=== PATIENT | female | born 1995 | race Caucasian/White ===

== ENCOUNTER 2017-10-17 04:09 | Emergency (ER) | payer OTHER ==
[2017-10-17 04:15] VITALS: BP 137/94; PULSE 72; RESP 18; TEMP 97.5
--- NOTE | 2017-10-17 04:22 | ED ---
ENT HPI - General Chief complaint: ENT Stated complaint: Earache Time Seen by Provider: 10/17/17 04:18 Source: patient, RN notes reviewed, old records reviewed Mode of arrival: ambulatory Limitations: no limitations - History of Present Illness Initial comments: This is a 22-year-old female the ER for evasive severe pain significant right ear pain. Patient states she's recently diagnosed with otitis externa started on drops of her right ear 5 days no improvement. Patient denies fevers. Patient severe severe right ear pain. Patient denies any change in her hearing no headache no known travel history no known sick contacts MD complaint: ear pain Location: R ear Severity: severe Severity scale (1-10): 9 Quality: burning, aching Consistency: constant Improves with: none Worsens with: none - Related Data Previous Rx's Medication Instructions Recorded Ibuprofen [Motrin] 200 - 400 mg PO Q6HR 7 Days tab 01/31/16 Ciprofloxacin HCl [Cipro] 500 mg PO Q12HR #14 tablet 10/17/17 Allergies Allergy/AdvReac Type Severity Reaction Status Date / Time No Known Allergies Allergy Verified 01/31/16 15:11 Review of Systems ROS Statement: Those systems with pertinent positive or pertinent negative responses have been documented in the HPI. ROS Other: All systems not noted in ROS Statement are negative. Past Medical History Past Medical History: No Reported History History of Any Multi-Drug Resistant Organisms: None Reported Past Surgical History: No Surgical Hx Reported Past Psychological History: No Psychological Hx Reported Smoking Status: Current every day smoker Past Alcohol Use History: Occasional Past Drug Use History: None Reported General Exam Limitations: no limitations Course Vital Signs 10/17/17 04:11 Temperature 97.5 F L Pulse Rate 72 Respiratory 18 Rate Blood Pressure 137/94 O2 Sat by Pulse 100 Oximetry Medical Decision Making - Medical Decision Making 22 female the ER with right ear pain, significant right otitis externa, will add oral antibiotics and switch drops from Polytrim to Cipro and patient will follow-up with ophthalmology Disposition Clinical Impression: Otitis media Disposition: HOME SELF-CARE Condition: Good Instructions: Earache (ED), Serous Otitis Media (ED) Prescriptions: Ciprofloxacin HCl [Cipro] 500 mg PO Q12HR #14 tablet Is patient prescribed a controlled substance at d/c from ED?: No Referrals: Aguilar Garcia MD [STAFF PHYSICIAN] - 1-2 days
[2017-10-17] MEDS ORDERED: CIPROFLOXACIN-DEXAMETH 0.3-0.1% DROPS 7.5 ML BTL RIGHT EAR STA (04:27)
[2017-10-17] MEDS ORDERED: CIPROFLOXACIN HCL 500 MG TAB PO STA (04:27)
[2017-10-17] MEDS ORDERED: HYDROcodone/APAP 5-325MG 1 EACH TAB PO STA (04:27)
[2017-10-17] MEDS ORDERED: ACET/COD 300 MG/30 MG STARTER PACK 6 TAB BTL PO STA (04:28)
== END 2017-10-17 04:51 | disposition home or self-care (01) ==
LOC: EC 04:09
DX: H66.91 Otitis media, unspecified, right ear (principal); H60.91 Unspecified otitis externa, right ear; F17.200 Nicotine dependence, unspecified, uncomplicated
CPT/HCPCS: 99283

== ENCOUNTER 2020-04-23 11:33 | Emergency (ER) | payer OTHER ==
[2020-04-23] MEDS ORDERED: KETOROLAC 15 MG/ML 1 ML VIAL IM STA (12:16)
[2020-04-23] MEDS ORDERED: predniSONE 50 MG TAB PO STA (12:43)
--- NOTE | 2020-04-23 12:45 | ED ---
Lower Extremity Injury HPI - General Chief Complaint: Extremity Injury, Lower Stated Complaint: lt foot swelling Time Seen by Provider: 04/23/20 12:02 Source: patient Mode of arrival: wheelchair Limitations: no limitations - History of Present Illness Initial Comments: 25-year-old female patient presents to the emergency department today for evaluation of left foot pain and swelling. Patient states that she gets similar symptoms periodically in her symptoms are exactly the same. States she is generally able to control her symptoms with ibuprofen but this time was working. States symptoms started yesterday and have worsened today. Denies any fever or chills. Denies any known injury to the foot. States it is very tender and difficult to stand on her foot. Denies history of gout. States that she's never had it evaluated by her primary care physician. Patient denies any headache, neck pain, back pain, chest pain, shortness of breath, dizziness, weakness, abdominal pain, nausea, vomiting, or difficulties with bowel movements or urination. - Related Data Previous Rx's Medication Instructions Recorded Ibuprofen [Motrin] 200 - 400 mg PO Q6HR 7 Days tab 01/31/16 Ciprofloxacin HCl [Cipro] 500 mg PO Q12HR #14 tablet 10/17/17 predniSONE 50 mg PO DAILY #5 tablet 04/23/20 Allergies Allergy/AdvReac Type Severity Reaction Status Date / Time No Known Allergies Allergy Verified 04/23/20 11:40 Review of Systems ROS Statement: Those systems with pertinent positive or pertinent negative responses have been documented in the HPI. ROS Other: All systems not noted in ROS Statement are negative. Past Medical History Past Medical History: No Reported History History of Any Multi-Drug Resistant Organisms: None Reported Past Surgical History: No Surgical Hx Reported Past Psychological History: No Psychological Hx Reported Smoking Status: Current every day smoker Past Alcohol Use History: Occasional Past Drug Use History: Marijuana General Exam Limitations: no limitations General appearance: alert, in no apparent distress, other (Physical well- developed, well-nourished adult female patient in no acute distress. Vital signs upon presentation are temperature 98.6F, pulse 98, respirations 20, blood pressure 137/90, pulse ox 99% on room air.) Respiratory exam: Present: normal lung sounds bilaterally. Absent: respiratory distress, wheezes, rales, rhonchi, stridor Cardiovascular Exam: Present: regular rate, normal rhythm, normal heart sounds. Absent: systolic murmur, diastolic murmur, rubs, gallop, clicks GI/Abdominal exam: Present: soft, normal bowel sounds. Absent: distended, tenderness, guarding, rebound, rigid Extremities exam: Present: full ROM, tenderness (Generalized foot tenderness), normal capillary refill, other (There is generalized swelling noted to the left foot and toes. Skin is pink, warm, dry. Cap refill less than 3 seconds. Pedal and posttibial pulses are 2+. No focal erythema. No calf or lower leg tenderness or pain.). Absent: normal inspection, pedal edema, joint swelling, calf tenderness Neurological exam: Present: alert, oriented X3, CN II-XII intact Psychiatric exam: Present: normal affect Skin exam: Present: warm, dry, intact, normal color. Absent: rash Course Vital Signs 04/23/20 04/23/20 11:38 13:04 Temperature 98.6 F 97.1 F L Pulse Rate 98 90 Respiratory 20 18 Rate Blood Pressure 137/90 128/87 O2 Sat by Pulse 99 99 Oximetry Medical Decision Making - Medical Decision Making 25-year-old female patient presented to the emergency department today for evaluation of left foot pain and swelling. Physical examination did reveal generalized swelling to the left foot and toes. Good neurovascular status. Patient has had symptoms similar to this before and declined x-ray. We did discuss possibility of inflammatory arthritis as a cause for her symptoms as she has had this in different joints. I did offer to perform laboratory testing, patient states she does not have time today. She'll be discharged with follow- up instructions. She is instructed to see a cash manager and establish with a primary care physician. Given a prescription for steroids. Return parameters were discussed in detail. She verbalizes understanding and agrees with this plan. Case discussed with my attending Dr. Verdugo. Disposition Clinical Impression: Left foot pain, Swelling of left foot Disposition: HOME SELF-CARE Condition: Good Instructions (If sedation given, give patient instructions): Arthralgia (ED), Swollen Joint (ED), Arthritis (ED) Additional Instructions: Take medications as directed. Continue ibuprofen. Take all medications with meals. Consider using [id number] Pepcid to protect her stomach. Follow- up with the cash manager and her primary care physician for recheck as soon as possible. When making your appointment inform them that there is concern for inflammatory arthritis. Return to the emergency department for any new, worsening, or concerning symptoms. Prescriptions: predniSONE 50 mg PO DAILY #5 tablet Is patient prescribed a controlled substance at d/c from ED?: No Referrals: Apoorva Robledo MD [STAFF PHYSICIAN] - 1-2 days Time of Disposition: 12:45
[2020-04-23 13:10] VITALS: BP 128/87; PULSE 90; RESP 18; TEMP 97.1
== END 2020-04-23 13:04 | disposition home or self-care (01) ==
LOC: EC 11:33
DX: M79.672 Pain in left foot (principal); M79.89 Other specified soft tissue disorders; F17.200 Nicotine dependence, unspecified, uncomplicated
CPT/HCPCS: 96372; 99283; J1885; J7512

== ENCOUNTER 2021-04-09 19:20 | Emergency (ER) | payer OTHER ==
[2021-04-09 19:29] VITALS: TEMP 98.7
[2021-04-09] MEDS ORDERED: HYDROcodone/APAP 5-325MG 1 EACH TAB PO STA (19:38)
[2021-04-09] MEDS ORDERED: KETOROLAC 15 MG/ML 1 ML VIAL IM STA (19:43)
--- NOTE | 2021-04-09 19:50 | ED ---
Upper Extremity HPI - General Chief Complaint: Extremity Injury, Upper Stated Complaint: hand injury Time Seen by Provider: 04/09/21 19:31 Source: patient, RN notes reviewed Mode of arrival: ambulatory Limitations: no limitations - History of Present Illness Initial Comments: This is an unpleasant 26 year old [facility] and philtrum. Patient uncooperative and unwilling to discuss much of her story initially. Her mother states that when she drove up the driveway the patient was laying on the porch, appearing as if she had slipped. The patient told her mother that she had walked into a door. Upon questioning the patient after pain medication was administered, she was more pleasant and explained that she shut her left hand in the door. She also sustained a laceration above her lip on the philtrum. MD Complaint: Injury to:: left, hand Other Extremity Injury: Fingers: Left, Hand: Left Place: home - Related Data Previous Rx's Medication Instructions Recorded Ibuprofen [Motrin] 200 - 400 mg PO Q6HR 7 Days tab 01/31/16 Ciprofloxacin HCl [Cipro] 500 mg PO Q12HR #14 tablet 10/17/17 predniSONE 50 mg PO DAILY #5 tablet 04/23/20 Ibuprofen [Motrin] 800 mg PO Q8H #30 tab 04/09/21 Allergies Allergy/AdvReac Type Severity Reaction Status Date / Time No Known Allergies Allergy Verified 04/09/21 19:29 Review of Systems ROS Statement: Those systems with pertinent positive or pertinent negative responses have been documented in the HPI. ROS Other: All systems not noted in ROS Statement are negative. Constitutional: Denies: fever, chills Respiratory: Denies: cough, dyspnea Cardiovascular: Denies: chest pain, palpitations Gastrointestinal: Denies: abdominal pain, nausea, vomiting, diarrhea Genitourinary: Denies: urgency, dysuria Skin: Reports: other (Laceration of the philtrum. Subungual hematoma of the left third finger) Past Medical History Past Medical History: No Reported History History of Any Multi-Drug Resistant Organisms: None Reported Past Surgical History: No Surgical Hx Reported Past Psychological History: No Psychological Hx Reported Smoking Status: Current every day smoker Past Alcohol Use History: Occasional Past Drug Use History: Marijuana General Exam Limitations: no limitations General appearance: alert, in distress Head exam: Present: atraumatic, normocephalic, normal inspection Respiratory exam: Present: normal lung sounds bilaterally. Absent: respiratory distress, wheezes, rales, rhonchi, stridor Cardiovascular Exam: Present: regular rate, normal rhythm, normal heart sounds. Absent: systolic murmur, diastolic murmur, rubs, gallop, clicks Neurological exam: Present: alert, oriented X3, CN II-XII intact Skin exam: Present: other (Subungual hematoma of the left third finger with swelling and echymosis of the middle and proximal phalanges of the left third finger.) Expanded Type of lesion: Present: laceration (1cm superficial laceration of the philtrum) Course Vital Signs 04/09/21 04/09/21 19:27 23:09 Temperature 98.7 F Pulse Rate 140 H 90 Respiratory 22 20 Rate Blood Pressure 152/125 132/85 O2 Sat by Pulse 96 96 Oximetry Procedures - Procedures Initial comment: Subungual hematoma was drained from the left third finger. A digital block was performed using 2 mL of 1% lidocaine. Zach holes were made using an 11 blade scalpel and sanguinous fluid was expressed. - Nerve Block Consent Obtained: verbal consent Local Anesthetic Used: Lidocaine 1% Amount of anesthesia used: 2 Side: left Nerve Blocks: digital Procedure Successful: Yes Complications: none Patient Tolerated Procedure: well Medical Decision Making - Medical Decision Making This is a 26 year old female who presents to the emergency department for an injury to the left hand and laceration to the philtrum. Patient was initially very unpleasant, uncooperative, and aggressive. She was given Toradol and norco for pain relief, which helped initially. About an hour later, she became distraught and would not settle down, and she was thus treated with IM ativan which had good effect. XR of the hand ruled out any fractures. Laceration was very superficial and no repair is required. Subungual hematoma of the left third finger was drained and offered immediate relief to the patient. Patient advised that this may continue to drain over the next 24-48 hours and is not of con cern. Motrin and Tylenol recommended for pain relief. Patient requested an rx for motrin be sent to her pharmacy, and this was sent over as requested. Return precautions reviewed in depth, the patient is instructed to return to the emergency department if symptoms worsen or do not improve. Patient verbalized understanding. This case was discussed in detail with the attending ED physician. Presentation, findings, and treatment plan discussed in detail as well. - Radiology Data Radiology results: report reviewed, image reviewed Disposition Clinical Impression: Hematoma, subungual, finger, left Disposition: HOME SELF-CARE Instructions (If sedation given, give patient instructions): Subungual Hematoma (ED) Additional Instructions: Return to the emergency department if you develop fevers/chills, increased swelling of the finger, or if there is drainage of pus. Be aware that drainage may occur for the next 24-48 hours. Prescriptions: Ibuprofen [Motrin] 800 mg PO Q8H #30 tab Is patient prescribed a controlled substance at d/c from ED?: No Referrals: None,Stated [Primary Care Provider] - 1-2 days
--- NOTE | 2021-04-09 20:11 | XR ---
EXAMINATION TYPE: XR hand complete LT DATE OF EXAM: 04/09/2021 COMPARISON: NONE HISTORY: Pain TECHNIQUE: 3 views FINDINGS: Metacarpals are intact. I see no fracture nor dislocation. Joint spaces are normal. The fin gers appear intact. Middle finger is intact. IMPRESSION: Negative left hand exam.
[2021-04-09] MEDS ORDERED: LIDOCAINE 1% INJ 10MG/ML (20 ML MDV) SQ ONE (21:02)
[2021-04-09] MEDS ORDERED: LORazepam 2 MG/ML INJ IM STA (21:45)
[2021-04-09 23:13] VITALS: BP 132/85; PULSE 90; RESP 20
== END 2021-04-09 23:01 | disposition home or self-care (01) ==
LOC: EC 19:20
DX: S60.132A Contusion of left middle finger with damage to nail, initial encounter (principal); F17.200 Nicotine dependence, unspecified, uncomplicated; X58.XXXA Exposure to other specified factors, initial encounter
CPT/HCPCS: 99283; 96372; 73130; 11740; J2060; J2001; J1885

== ENCOUNTER 2021-11-26 21:36 | Emergency (ER) | payer OTHER ==
[2021-11-26] MEDS ORDERED: ACETAMINOPHEN TAB 500 MG TAB PO STA (21:57)
[2021-11-26] MEDS ORDERED: SODIUM CHLORIDE 0.9% 2,000 ML IV STA (21:57)
[2021-11-26] MEDS ORDERED: ONDANSETRON 4 MG/2 ML VIAL IVP STA (21:57)
[2021-11-26 22:16] VITALS: BP 105/72; PULSE 93; RESP 19; TEMP 98
--- NOTE | 2021-11-26 22:16 | ED ---
General Adult HPI - General Stated complaint: Syncope Time Seen by Provider: 11/26/21 21:38 Source: patient, RN notes reviewed, old records reviewed - History of Present Illness Initial comments: Patient is a 26-year-old female who presents emergency Department following a syncopal episode. Patient states she was standing in her kitchen when she leaned up against the fridge and wall, and she appeared to have slid down the wall and was sitting on the ground. She believes she passed out. Denies hitting her head. Denies any prior history of syncopal episodes. States she has not been eating or drinking much the last few days due to feeling ill. Has generalized joint pain, headache, fatigue for 3 days. States she feels she has the flu and has been lying in bed during that time. Denies nausea or vomiting. Denies diarrhea. States immediately after the episode of syncope patient felt nauseous and felt she may need to use the restroom but did not. Denies any urinary complaints. Denies any chest pain or shortness of breath. Denies any cough. Denies nasal congestion or sore throat. No other acute complaints at this time. Was not vaccinated for Covid. Is uncertain if she is positive. Presents for further evaluation at this time. Denies urinary complaints. Does not believe she is . - Related Data Previous Rx's Medication Instructions Recorded Ibuprofen [Motrin] 200 - 400 mg PO Q6HR 7 Days tab 01/31/16 Ciprofloxacin HCl [Cipro] 500 mg PO Q12HR #14 tablet 10/17/17 predniSONE 50 mg PO DAILY #5 tablet 04/23/20 Ibuprofen [Motrin] 800 mg PO Q8H #30 tab 04/09/21 Allergies Allergy/AdvReac Type Severity Reaction Status Date / Time acetaminophen [From [facility]] AdvReac Nausea Verified 11/26/21 22:16 hydrocodone [From [facility]] AdvReac Nausea Verified 11/26/21 22:16 Review of Systems ROS Statement: Those systems with pertinent positive or pertinent negative responses have been documented in the HPI. Review of Systems: CONST: Endorses chills EYES: Denies blurry vision ENT: Denies nasal congestion C/V: Denies Chest pain RESP: Denies shortness of breath GI: Denies abdominal pain : Denies dysuria SKIN: Denies rash. MSK: Endorses generalized body aches NEURO: Endorses headache ROS Other: All systems not noted in ROS Statement are negative. Past Medical History Past Medical History: No Reported History History of Any Multi-Drug Resistant Organisms: None Reported Past Surgical History: No Surgical Hx Reported Past Psychological History: No Psychological Hx Reported Smoking Status: Current every day smoker Past Alcohol Use History: Occasional Past Drug Use History: Marijuana General Exam - General Exam Comments Initial Comments: General: Appears in no acute distress. HEAD: Normal with no signs of head trauma. EYES: PERRLA, EOMI, conjunctiva normal, no discharge. Pupils are 3 mm and equal bilaterally. ENT: Hearing grossly intact, normal oropharynx. Dry mucous membranes. RESPIRATORY: Clear breath sounds bilaterally. No wheezes, rales, or rhonchi. No hypoxia, no respiratory distress. C/V: Regular rate and rhythm. S1 and S2 auscultated, no edema, peripheral pulses 2+ and intact throughout ABD: Abd is soft, nontender, nondistended EXT: Normal range of motion, no obvious deformity SKIN: No rashes or lesions observed on exposed skin. NEURO: Alert and oriented x 4. Cranial nerves II-XII intact. No focal sensory or strength deficits. GCS of 15. Course Vital Signs 11/26/21 11/26/21 22:10 22:14 Temperature 98 F Pulse Rate 74 93 Respiratory 15 19 Rate Blood Pressure 105/65 105/72 O2 Sat by Pulse 98 98 Oximetry Medical Decision Making - Medical Decision Making Based on patient's presentation and physical exam, I do believe she likely experienced a possible syncopal episode at home. Appears likely associated with her illness type symptoms that she is having and I strongly suspect COVID-19 at this time. Appears dehydrated. She'll be fluid hydrated, we will obtain syncopal labs as well as a screening EKG. COVID-19 for signs will be sent. Chest x-ray will be obtained. She was in agreement with this plan. Neuro exam is within normal limits at this time. Vital signs are within except for limits. No respiratory distress. EKG shows no signs of acute ischemia.Patient refuses chest x-ray. Patient refuses Covid and flu swabs. She does accept the laboratory studies and IV fluids. Laboratory studies remarkable for leukocytosis of 16 which is likely reactive due to multiple episodes of emesis, as well as her viral illness she is having. Does appear mildly dehydrated swollen glands. She is not . On reevaluation, she is feeling improved. Like to go home. Vital signs are still within acceptable limits. She is tolerating oral intake. We discussed that she likely has COVID-19 and she should do a home test. She was in agreement. She'll be given Zofran ODT starter pack. Strict return precautions were discussed. She is likely experiencing a viral syndrome. Discussed proper hydration. She was in agreement this plan. She is ready for discharge home.Discussed that her syncope was likely secondary to dehydration. Workup was otherwise unremarkable. I instructed the patient to follow up with their PCP in the next 1-3 days. I explained that the patient should return to the emergency department if they experience any worsening symptoms. Strict return precautions were discussed with the patient. The patient expressed understanding of these instructions. I answered all questions that the patient had. The patient was discharged home in good condition with their prescriptions and follow up information. - Lab Data Result diagrams: 11/26/21 21:45 11/26/21 21:45 Lab Results 11/26/21 11/26/21 Range/Units 21:45 21:45 WBC 16.0 H (3.8-10.6) k/uL RBC 5.02 (3.80-5.40) m/uL Hgb 15.8 (11.4-16.0) gm/dL Hct 45.9 (34.0-46.0) % MCV 91.5 (80.0-100.0) fL MCH 31.5 (25.0-35.0) pg MCHC 34.4 (31.0-37.0) g/dL RDW 12.2 (11.5-15.5) % Plt Count 294 (150-450) k/uL MPV 8.2 Neutrophils % 79 % Lymphocytes % 12 % Monocytes % 7 % Eosinophils % 1 % Basophils % 1 % Neutrophils # 12.6 H (1.3-7.7) k/uL Lymphocytes # 1.9 (1.0-4.8) k/uL Monocytes # 1.1 H (0-1.0) k/uL Eosinophils # 0.1 (0-0.7) k/uL Basophils # 0.2 (0-0.2) k/uL Sodium 136 L (137-145) mmol/L Potassium 4.1 (3.5-5.1) mmol/L Chloride 96 L (98-107) mmol/L Carbon Dioxide 23 (22-30) mmol/L Anion Gap 17 mmol/L BUN 11 (7-17) mg/dL Creatinine 1.07 H (0.52-1.04) mg/dL Est GFR (CKD-EPI)AfAm 82 (>60 ml/min/1.73 sqM) Est GFR (CKD-EPI)NonAf 71 (>60 ml/min/1.73 sqM) Glucose 176 H (74-99) mg/dL Calcium 9.4 (8.4-10.2) mg/dL Magnesium 1.9 (1.6-2.3) mg/dL Total Bilirubin 2.2 H (0.2-1.3) mg/dL AST 85 H (14-36) U/L ALT 59 H (4-34) U/L Alkaline Phosphatase 107 (38-126) U/L Total Protein 7.8 (6.3-8.2) g/dL Albumin 4.7 (3.5-5.0) g/dL HCG, Qual Not Detected - EKG Data -: EKG Interpreted by Me EKG Comments: 12-lead Electrocardiogram Interpretation Note EKG was reviewed and interpreted by myself. 12-lead ECG performed at 2141 is interpreted by me as revealing normal sinus rhythm at a rate of 91 beats per minute. [place] is normal. NM Intervals 140 ms, QRS duration is 84 ms, QTc is 384 ms.. There were no ST or T wave abnormalities to suggest myocardial ischemia or injury. R wave progression across the precordium was satisfactory. By my interpretation this EKG is non-diagnostic for acute ischemia. Disposition Clinical Impression: Dehydration, Chills, Viral illness Narrative: possible syncope Disposition: HOME SELF-CARE Condition: Good Is patient prescribed a controlled substance at d/c from ED?: No Referrals: None,Stated [Primary Care Provider] - 1-2 days Time of Disposition: 23:40
[2021-11-26 22:32] LABS: Basophils # (A) 0.2 k/uL (0-0.2); Basophils % (A) 1 %; Eosinophils # (A) 0.1 k/uL (0-0.7); Eosinophils % (A) 1 %; HCT 45.9 % (34.0-46.0); HGB 15.8 gm/dL (11.4-16.0); Lymphocytes # (A) 1.9 k/uL (1.0-4.8); Lymphocytes % (A) 12 %; MCH 31.5 pg (25.0-35.0); MCHC 34.4 g/dL (31.0-37.0); MCV 91.5 fL (80.0-100.0); Mean Platelet Volume 8.2; Monocytes # (A) 1.1 k/uL (0-1.0); Monocytes % (A) 7 %; Neutrophils # (A) 12.6 k/uL (1.3-7.7); Neutrophils % (A) 79 %; Platelet Count 294 k/uL (150-450); RBC 5.02 m/uL (3.80-5.40); RDW 12.2 % (11.5-15.5)
[2021-11-26 22:39] LABS: ALT 59 U/L (4-34); AST 85 U/L (14-36); African American GFR (CKD) 82 (>60 ml/min/1.73 sqM); Albumin 4.7 g/dL (3.5-5.0); Alkaline Phosphatase 107 U/L (38-126); Anion Gap 17 mmol/L; Blood Urea Nitrogen 11 mg/dL (7-17); Calcium 9.4 mg/dL (8.4-10.2); Carbon Dioxide 23 mmol/L (22-30); Chloride 96 mmol/L (98-107); Glucose 176 mg/dL (74-99); Magnesium 1.9 mg/dL (1.6-2.3); Non-African American GFR(CKD) 71 (>60 ml/min/1.73 sqM); Potassium 4.1 mmol/L (3.5-5.1); Sodium 136 mmol/L (137-145); Total Bilirubin 2.2 mg/dL (0.2-1.3); Total Protein 7.8 g/dL (6.3-8.2)
[2021-11-26 23:12] LABS: HCG,Qualitative Serum Not Detected
[2021-11-26] MEDS ORDERED: ONDANSETRON 4 MG ODT STARTER PACK 2 TAB BTL PO STA (23:50)
== END 2021-11-27 00:08 | disposition home or self-care (01) ==
LOC: EC 21:36
DX: E86.0 Dehydration (principal); R68.83 Chills (without fever); B34.9 Viral infection, unspecified; F17.200 Nicotine dependence, unspecified, uncomplicated; F12.90 Cannabis use, unspecified, uncomplicated; Z88.6 Allergy status to analgesic agent; Z88.5 Allergy status to narcotic agent
CPT/HCPCS: 36415; 93005; 80053; 83735; 85025; 84703; 99284; 96374; 96361; J2405

== ENCOUNTER 2021-12-21 00:18 | Emergency (ER) | payer OTHER ==
[2021-12-21 00:30] VITALS: RESP 18; TEMP 97.6
--- NOTE | 2021-12-21 01:12 | US ---
EXAMINATION TYPE: US venous doppler duplex LE LT DATE OF EXAM: 12/21/2021 12:54 AM COMPARISON: NONE CLINICAL HISTORY: pain and swelling. Left leg pain SIDE PERFORMED: Left TECHNIQUE: The lower extremity deep venous system is examined utilizing real time linear array sonog letty with graded compression, doppler sonography and color-flow sonography. VESSELS IMAGED: Common Femoral Vein Deep Femoral Vein Greater Saphenous Vein * Femoral Vein Popliteal Vein Small Saphenous Vein * Proximal Calf Veins (* superficial vessels) Left Leg: Appears negative for DVT Scanned left medial lower thigh and left medial ankle at patient's areas of pain: no SVT seen No evidence of deep vein thrombosis or any superficial vein thrombosis.
[2021-12-21] MEDS ORDERED: SULFAMETHOX-TMP 800-160MG 1 EACH TAB PO STA (02:14)
--- NOTE | 2021-12-21 02:14 | ED ---
Extremity Problem HPI - General Chief complaint: Extremity Problem,Nontraumatic Stated complaint: Blood Clot in Left Leg Time Seen by Provider: 12/21/21 02:06 Source: patient Mode of arrival: ambulatory Limitations: no limitations - History of Present Illness MD Complaint: extremity pain, extremity swelling Onset/Timin -: days(s) Location: right, lower extremity Quality: dull Consistency: constant Improves with: nothing Worsens with: nothing Associated Symptoms: denies other symptoms - Related Data Previous Rx's Medication Instructions Recorded Ibuprofen [Motrin] 200 - 400 mg PO Q6HR 7 Days tab 01/31/16 Ciprofloxacin HCl [Cipro] 500 mg PO Q12HR #14 tablet 10/17/17 predniSONE 50 mg PO DAILY #5 tablet 04/23/20 Ibuprofen [Motrin] 800 mg PO Q8H #30 tab 04/09/21 Sulfamethox-Tmp 800-160Mg [Bactrim 1 each PO Q12HR #14 tab 12/21/21 Ds] Allergies Allergy/AdvReac Type Severity Reaction Status Date / Time hydrocodone [From [place]] AdvReac Nausea Verified 11/26/21 22:16 Review of Systems ROS Statement: Those systems with pertinent positive or pertinent negative responses have been documented in the HPI. ROS Other: All systems not noted in ROS Statement are negative. Constitutional: Denies: fever, chills Respiratory: Denies: cough, dyspnea, hemoptysis Cardiovascular: Denies: chest pain, palpitations, edema, syncope Skin: Reports: as per HPI, change in color Neurological: Denies: weakness, numbness Past Medical History Past Medical History: No Reported History History of Any Multi-Drug Resistant Organisms: None Reported Past Surgical History: No Surgical Hx Reported Past Psychological History: No Psychological Hx Reported Smoking Status: Current every day smoker Past Alcohol Use History: Occasional Past Drug Use History: Marijuana General Exam Limitations: no limitations General appearance: alert, in no apparent distress Skin exam: Present: warm, erythema, other (The patient has 6-7 cm area of warmth, redness, induration to the skin posterior aspect of the right leg, just proximal to the lateral malleolus. There does appear to be is tiny central puncture. There is no palpable fluctuance) Course Vital Signs 12/21/21 00:28 Temperature 97.6 F Pulse Rate 106 H Respiratory 18 Rate Blood Pressure 133/90 O2 Sat by Pulse 98 Oximetry Medical Decision Making - Medical Decision Making Exam consistent with cellulitis versus possible bite with local reaction. Patient will be given prescription to start should the symptoms not resolve, or should she develop any fever or chills. Discussed appropriate further care and follow-up as well as return parameters. Disposition Clinical Impression: Cellulitis Disposition: HOME SELF-CARE Condition: Good Instructions (If sedation given, give patient instructions): Cellulitis (ED) Prescriptions: Sulfamethox-Tmp 800-160Mg [Bactrim Ds] 1 each PO Q12HR #14 tab Is patient prescribed a controlled substance at d/c from ED?: No Referrals: None,Stated [Primary Care Provider] - 1-2 days
[2021-12-21 02:31] VITALS: BP 116/69; PULSE 84
== END 2021-12-21 02:34 | disposition home or self-care (01) ==
LOC: EC 00:18
DX: L03.116 Cellulitis of left lower limb (principal); F17.200 Nicotine dependence, unspecified, uncomplicated; F12.90 Cannabis use, unspecified, uncomplicated; Z88.5 Allergy status to narcotic agent; Z79.899 Other long term (current) drug therapy
CPT/HCPCS: 99284

== ENCOUNTER 2023-11-22 16:42 | Emergency (ER) | payer OTHER ==
[2023-11-22 17:07] VITALS: RESP 18; TEMP 97.8
--- NOTE | 2023-11-22 17:34 | ED ---
Animal Bite HPI - General Chief Complaint: Animal Bite Stated Complaint: Animal Bite(Dog) Time Seen by Provider: 11/22/23 17:11 Source: patient, RN notes reviewed Mode of arrival: ambulatory Limitations: no limitations - History of Present Illness Initial Comments: This is a 28-year-old female who presents to the emergency department for a dog bite to her right forearm. States that last night around 9 PM her dog was fighting with someone else's dog and she went to try to break it up. Her dog subsequently bit her in the right forearm. States that her dog is a pitbull. Her dog is up-to-date on its immunizations. States that she may have been bit by her neighbors dog as well, but is not entirely sure. Unsure if that dog is up to date on immunizations. Denies any fevers or chills, but states that this area is getting increasingly painful. Her tetanus vaccine is up to date. MD Complaint: animal bite - Related Data Previous Rx's Medication Instructions Recorded Ibuprofen [Motrin] 200 - 400 mg PO Q6HR 7 Days tab 01/31/16 Ciprofloxacin HCl [Cipro] 500 mg PO Q12HR #14 tablet 10/17/17 predniSONE 50 mg PO DAILY #5 tablet 04/23/20 Ibuprofen [Motrin] 800 mg PO Q8H #30 tab 04/09/21 Sulfamethox-Tmp 800-160Mg [Bactrim 1 each PO Q12HR #14 tab 12/21/21 Ds] Amoxic-Pot Clav 875-125Mg 1 tab PO Q12HR 10 Days #20 tab 11/22/23 [Augmentin 875-125] Ibuprofen [Motrin] 800 mg PO Q8H PRN #30 tab 11/22/23 Allergies Allergy/AdvReac Type Severity Reaction Status Date / Time hydrocodone [From [place]] AdvReac Nausea Verified 11/22/23 17:07 Review of Systems ROS Statement: Those systems with pertinent positive or pertinent negative responses have been documented in the HPI. ROS Other: All systems not noted in ROS Statement are negative. Past Medical History Past Medical History: No Reported History History of Any Multi-Drug Resistant Organisms: None Reported Past Surgical History: No Surgical Hx Reported Past Psychological History: No Psychological Hx Reported Smoking Status: Current every day smoker Past Alcohol Use History: Occasional Past Drug Use History: Marijuana General Exam Limitations: no limitations General appearance: alert, in no apparent distress Head exam: Present: atraumatic, normocephalic, normal inspection Respiratory exam: Present: normal lung sounds bilaterally. Absent: respiratory distress, wheezes, rales, rhonchi, stridor Cardiovascular Exam: Present: regular rate, normal rhythm, normal heart sounds. Absent: systolic murmur, diastolic murmur, rubs, gallop, clicks Extremities exam: Present: other (Puncture wounds to the right forearm with mild swelling and mild surrounding erythema and tenderness. No drainage.) Neurological exam: Present: alert, oriented X3, CN II-XII intact Psychiatric exam: Present: normal affect, normal mood Course Vital Signs 11/22/23 11/22/23 17:03 17:52 Temperature 97.8 F Pulse Rate 102 H 94 Respiratory 18 18 Rate Blood Pressure 121/75 138/84 O2 Sat by Pulse 100 100 Oximetry Medical Decision Making - Medical Decision Making This is a 28 year old female who presents to the emergency department for a dog bite. Was pt. sent in by a medical professional or institution? @ -No Did you speak to anyone other than the patient for history? @ -No Did you review nursing and triage notes? @ -Yes, and I agree, it is accurate with regards to the patient's symptoms. Were old charts reviewed? @ -No Differential Diagnosis? @ -Animal bite, cellulitis, abscess, burn, this is not meant to be an all- inclusive list. EKG interpreted by me (3pts min.)? @ -Not obtained X-rays interpreted by me (1pt min.)? @ -Not obtained CT interpreted by me (1pt min.)? @ -Not obtained U/S interpreted by me (1pt. min.)? @ -Not obtained What testing was considered but not performed? (CT, X-rays, U/S, labs)? Why? @ -None What meds were considered but not given? Why? @ -None Did you discuss the management of the patient with other professionals? @ -No Did you reconcile home meds? @ -No Was smoking cessation discussed for >3mins.? @ -I discussed smoking cessation for greater than 3 minutes. The risk of smoking were discussed with the patient including but not limited to risks of cancer, stroke, coronary artery disease and COPD. Also discussed with patient were multiple methods of quitting smoking. Lastly we discussed the financial cost of smoking. Was critical care preformed (if so, how long)? @ -No Were there social determinants of health that impacted care today? How? (Homelessness, low income, unemployed, alcoholism, drug addiction, transportation, low edu. Level, literacy, decrease access to med. care, halfway, rehab)? @ -No Was there de-escalation of care discussed even if they declined? (Discuss DNR or withdrawal of care, Hospice)? @ -No What co-morbidities impacted this encounter? (DM, HTN, Smoking, COPD, CAD, Cancer, CVA, Hep., AIDS, mental health diagnosis, sleep apnea, morbid obesity)? @ -None Was patient admitted / discharged? @ -Discharged. The wound was swollen, but did not have any signs of drainage or significant infection at this time. Patient declined the rabies vaccine, which was offered given that she may have been bitten by a neighbor's dog and the immunization status of the dog was not clear. Patient's own tetanus vaccine is up-to-date. Prescription for Augmentin and ibuprofen provided. She was given strict return parameters and advised to keep an eye out for signs of infection. Patient discharged home in stable condition. Case discussed with ED attending Dr. Verdugo. Return precautions reviewed in depth, the patient is instructed to return to the emergency department with any new, worsening, or concerning symptoms. Patient verbalized understanding. Undiagnosed new problem with uncertain prognosis? @ -None Drug Therapy requiring intensive monitoring for toxicity (Heparin, Nitro, Insulin, Cardizem)? @ -None Were any procedures done? @ -None Diagnosis/symptom? @ -Dog bite Acute, or Chronic, or Acute on Chronic? @ -Acute Uncomplicated (without systemic symptoms) or Complicated (systemic symptoms)? @ -Uncomplicated Side effects of treatment? @ -None Exacerbation, Progression, or Severe Exacerbation] @ -Not applicable Poses a threat to life or bodily function? @ -No Disposition Clinical Impression: Dog bite, Nicotine dependence Disposition: HOME SELF-CARE Condition: Good Instructions (If sedation given, give patient instructions): Animal Bite (ED) Additional Instructions: Return to the emergency department with any new, worsening, or concerning symptoms. Take the antibiotic as prescribed for 10 days. Alternate with ibuprofen and Tylenol as needed for pain relief. Follow up with your primary care provider in 1-2 days. Prescriptions: Amoxic-Pot Clav 875-125Mg [Augmentin 875-125] 1 tab PO Q12HR 10 Days #20 tab Ibuprofen [Motrin] 800 mg PO Q8H PRN #30 tab PRN Reason: Pain Is patient prescribed a controlled substance at d/c from ED?: No Referrals: None,Stated [Primary Care Provider] - 1-2 days Time of Disposition: 17:34
[2023-11-22] MEDS: AMOXIC-POT CLAV 875-125MG 1 EACH TAB PO STA (17:45)
[2023-11-22] MEDS: ACETAMINOPHEN TAB 500 MG TAB PO STA (17:45)
[2023-11-22] MEDS: KETOROLAC 15 MG/ML 1 ML VIAL IM STA (17:50)
[2023-11-22 17:54] VITALS: BP 138/84; PULSE 94
== END 2023-11-22 17:52 | disposition home or self-care (01) ==
LOC: EC 16:42
CPT/HCPCS: 99283; 99406